=== PATIENT | female | born 1990 | race Hispanic/Latino ===

== ENCOUNTER 2017-09-05 01:30 | Observation (INO) | payer MEDICAID ==
[~2017-09-05] VITALS: Ht 170.2 cm; Wt 138.3 kg
[2017-09-05 02:30] VITALS: BP 108/51
== END 2017-09-05 02:45 | disposition home or self-care (01) ==
LOC: EDH 01:30 → LDH 01:31
PROVIDERS: ADMIT Internal Medicine; ATTEND Internal Medicine
DX: O26.893 Other specified pregnancy related conditions, third trimester (principal); N89.8 Other specified noninflammatory disorders of vagina; Z3A.33 33 weeks gestation of pregnancy
CPT/HCPCS: 82120; 99285; G0378

== ENCOUNTER 2017-09-14 12:32 | Observation (INO) | payer MEDICAID | END 2017-09-14 14:20 | disposition home or self-care (01) | LOC: EDH 12:32 → LDH 12:59 | PROVIDERS: ADMIT Internal Medicine; ATTEND Internal Medicine | DX: O36.8130 Decreased fetal movements, third trimester, not applicable or unspecified (principal); Z3A.35 35 weeks gestation of pregnancy | CPT/HCPCS: 99285; G0378 ==